=== PATIENT | male | born 1940 | race Caucasian/White ===

== ENCOUNTER → 2017-11-05 11:30 | Outpatient (CLI) | payer MEDICARE, OTHER, SELFPAY ==
--- NOTE | 2017-11-05 16:29 | STRESSREP ---
Stress Test Report Treadmill EKG report: Resting EKG: Atrial fibrillation with controlled ventricular response, poor R-wave progression across precordium, cannot exclude old anterior wall myocardial infarction, low voltage in the precordial and limb leads. Treadmill EKG: Patient exercised according to a Jose protocol for 3 minutes and 41 seconds achieving a maximum workload of 5.40 METS. Resting heart rate was initially 72 beats a minute and cate to maximum 122 beats a minute which represents 84% of the maximum age-predicted heart rate. Resting blood pressure was 170/82 and cate to maximum 240/70. Test was terminated due to the attainment of target heart rate and dyspnea. During exercise the patient's heart rate increased as expected. Patient had rare PVCs during exercise. Patient had no dynamic EKG changes to suggest ischemia. Rare ventricular couplet during recovery. No anginal symptoms noted. Conclusions: Normal adequate treadmill EKG. Negative for ischemia by EKG criteria. No anginal symptoms noted. Test terminated due to dyspnea. Baseline hypertension and hypertensive blood pressure response to exercise. Poor exercise capacity for age. Recommend clinical correlation or alternative mode of testing if coronary ischemia is suspected. Patient tolerated procedure well. No complications.
--- NOTE | 2017-11-05 16:33 | STRESSREP_ITS ---
Stress Test Report Treadmill EKG report: Resting EKG: Atrial fibrillation with controlled ventricular response, poor R- wave progression across precordium, cannot exclude old anterior wall myocardial infarction, low voltage in the precordial and limb leads. Treadmill EKG: Patient exercised according to a Jose protocol for 3 minutes and 41 seconds achieving a maximum workload of 5.40 METS. Resting heart rate was initially 72 beats a minute and cate to maximum 122 beats a minute which represents 84% of the maximum age-predicted heart rate. Resting blood pressure was 170/82 and cate to maximum 240/70. Test was terminated due to the attainment of target heart rate and dyspnea. During exercise the patient's heart rate increased as expected. Patient had rare PVCs during exercise. Patient had no dynamic EKG changes to suggest ischemia. Rare ventricular couplet during recovery. No anginal symptoms noted. Conclusions: Normal adequate treadmill EKG. Negative for ischemia by EKG criteria. No anginal symptoms noted. Test terminated due to dyspnea. Baseline hypertension and hypertensive blood pressure response to exercise. Poor exercise capacity for age. Recommend clinical correlation or alternative mode of testing if coronary ischemia is suspected. Patient tolerated procedure well. No complications.
== END ==
PROVIDERS: Family Provider Family Medicine; PCP Family Medicine; Visit Provider Internal Medicine Cardiovascular Disease
DX: R06.02 Shortness of breath (principal); R60.9 Edema, unspecified; E55.9 Vitamin D deficiency, unspecified
CPT/HCPCS: 93017

== ENCOUNTER 2022-03-21 14:21 | Emergency (ER) | payer MEDICARE, OTHER, SELFPAY ==
[2022-03-21 14:22] VITALS: BP 154/59; PULSE 42; RESP 16; TEMP 36.2; O2SAT 99; BMI 34.4
--- NOTE | 2022-03-21 14:57 | EKG12_ITS ---
Test Reason : Blood Pressure : / mmHG Vent. Rate : 043 BPM Atrial Rate : 000 BPM P-R Int : 000 ms QRS Dur : 104 ms QT Int : 430 ms P-R-T Axes : 000 -64 046 degrees QTc Int : 363 ms Junctional bradycardia Left axis deviation Inferior VT, age undetermined Ruiz-lateral VT, age undetermined Abnormal ECG Confirmed by SO JEFFERSON, SARY ([id number]), editor sound SILVIA ZHANG ([id number]) on 03/23/2022 9:19:43 AM Referred By: Rosa M Confirmed By:SARY RIZZO MD
--- NOTE | 2022-03-21 15:03 | EDS_ITS ---
HPI History of Present Illness Chief Complaint: Weakness Detail of Chief Complaint: I do not feel well Informant: patient Onset/Context/Timing Onset: Days Context: Gradual Onset Timing: Continuous Quality: Generalized unwellness Location: Not applicable Current Severity: Mild Maximum Severity: Mild Worsened by: Nothing Relieved by: Nothing Associated Symptoms Associated Symptoms: None Narrative Narrative: Patient is an elderly male who lives with family member who presents because he does not feel well. He denies fever, chills night sweats. He denies blurred vision, change in vision, double vision or loss of vision. He denies trouble with speech or swallowing. He is hard of hearing. He denies ringing in his ears. He does not endorse increased hearing loss. He does report congestion, which she states is not abnormal. He denies sore throat. He denies chest pain or anginal equivalent chest discomfort. He denies orthopnea, PND or dyspnea. He may have slight shortness of breath with activity. He denies nausea, vomiting or diarrhea. He denies black or maroon-colored stool. He denies urologic symptoms. He does have history of prostate cancer. He is on an anticoagulant. He does not know why he is on an anticoagulant. He denies leg pain, swelling or discoloration. He denies history of VTE. When patient was informed that he does have swelling he made the comment my socks have been tight recently . Prior similar symptoms: No Recent Illness/Hospitalization: No [facility] Medical History Bradycardia Chronic atrial fibrillation Chronic kidney disease Diabetes HTN (hypertension) Hyperlipidemia Lumbar spondylosis Home Medications atorvastatin 20 mg tablet 20 mg PO QHS cholesterol 03/21/22 [History Last Taken 03/20/22] chlorthalidone 25 mg tablet 1 tab PO DAILY 03/21/22 [History Last Taken 03/21/22] diltiazem HCl 240 mg capsule,24 hr,extended release 1 cap PO DAILY 03/21/22 [History Last Taken 03/21/22] gabapentin 300 mg capsule 1 cap PO BID 03/21/22 [History Last Taken 03/21/22] ketorolac 0.4 % eye drops 1 drp RIGHT EYE BID 03/21/22 [History Last Taken 03/21/22] latanoprost 0.005 % eye drops 1 drp EACH EYE QHS 03/21/22 [History Last Taken 03/20/22] lisinopril 40 mg tablet 40 tab PO DAILY 03/21/22 [History Last Taken 03/21/22] oxycodone-acetaminophen 5 mg-325 mg tablet 1 tab PO Q6H 03/21/22 [History Last Taken 4 Days Ago ~03/17/22] potassium chloride 20 mEq tablet,extended release(part/cryst) 20 meq PO DAILY potassium 03/21/22 [History Last Taken 03/21/22] warfarin 4 mg tablet 4 mg PO TUTH blood thinner 03/21/22 [History Last Taken 03/19/22] warfarin 5 mg tablet 5 mg PO SUMOWEFRSA blood thinner 03/21/22 [History Last Taken 03/20/22] Allergy/AdvReac Type Severity Reaction Status Date / Time No Known Allergies Allergy Verified 03/21/22 14:24 Social History (Updated 03/21/22 @ 15:[address] Radu Salcido MD) household members: family Smoking Status: Never smoker substance use type: does not use ROS ROS ED Constitutional Constitutional ED: Denies chills, fever(s), subjective, sweats or weight loss Eyes Eyes: Denies blurry vision, change in vision or diplopia ENT ENT ED: Reports other Details: Hard of hearing ; Denies ear pain, rhinorrhea or sore throat Cardiovascular Cardiovascular: Denies chest pain, orthopnea, palpitations, paroxysmal nocturnal dyspnea or racing heartbeat Respiratory/Chest Respiratory/Chest: Denies cough, dyspnea, dyspnea on exertion, orthopnea, paroxysmal nocturnal dyspnea or sputum Gastrointestinal Gastrointestinal: Denies abdominal pain, constipation, diarrhea, melena, nausea or vomiting Genitourinary Genitourinary ED: Denies dysuria, hematuria or urinary frequency Musculoskeletal Musculoskeletal: Denies arthralgias, back pain, myalgias or neck pain Integumentary Denies Abrasions or rash Neurologic Neurologic: Reports weakness; Denies headache(s) or paresthesias Endocrine Endocrinology: Denies cold intolerance or heat intolerance Hematologic/Lymphatic Hematologic/Lymphatic: Denies anemia, easy bleeding, easy bruising or lymphadenopathy EXAM Physical Exam Const Vital Signs: 03/21/22 14:22 03/21/22 15:06 03/21/22 16:22 Temperature 97.2 F L Temperature Source Temporal Pulse Rate 42 L 32 L Respiratory Rate 16 16 Respiratory Effort Normal Respiratory Pattern Normal Blood Pressure 154/59 H 155/58 H Blood Pressure Mean 90 90 Pulse Ox 99 99 Oxygen Delivery Method Room Air Room Air Positive well nourished, well developed and obese General Appearance ED: well developed and NAD; Negative for cyanotic, diaphoretic or pallor Nutritional Appearance: obese HEENT Reports TM's clear and moist mucous membranes HEENT Narrative: Nares patent. Posterior pharynx out erythema or exudate. Uvula midline. Negative for trauma or tenderness Tympanic Membrane ED: Yes TM's clear Eyes PERRL and EOMs intact bilaterally Eyes Narrative: There is no nystagmus. There is no APD. Cup-to-disc ratio is normal. Conjunctive is pink. Sclera is anicteric. Neck no lymphadenopathy and supple Resp normal respiratory effort and clear to auscultation bilaterally Cardio no murmurs Rate: bradycardia Rhythm: abnormal rhythm irregularly irregular GI normal to inspection, nondistended, normoactive bowel sounds, non-tender and non-distended; Negative for hepatosplenomegaly Palpation: soft Back/Spine no CVA tenderness Cervical Spine: Negative for cervical spine tenderness Thoracic Spine / Upper Back: Negative for thoracic spinal tenderness Lumbar Spine / Lower Back: Negative for lumbar spinal tenderness Extremity Negative for normal to inspection Extremity Narrative: There is pitting edema to 2 3 mm. DP pulses palpable bilateral General Extremety ED: Yes edema; Negative for tenderness General Extremity: edema Neuro oriented x3, CN's II-XII intact bilaterally and no sensory deficits noted Sensorium / Orientation: alert Motor Exam: strength 5/5 throughout Psych mental status grossly normal Skin no rashes or lesions noted, no wounds and skin turgor normal General Skin Exam: Negative for jaundice or pallor MDM MDM MDM Narrative Medical decision making narrative: Patient with generalized symptoms. Will obtain UA to rule out urinary tract infection. Will obtain PT/INR since patient is on Coumadin. After review of prior records patient is on Coumadin due to chronic A. fib. Electrolyte panel was obtained to assess renal function, electrolytes and specifically potassium and calcium. EKG was obtained and reveals atrial fibrillation with a ventricular rate of 43. I was informed by nurse that patient had a heart rate of 27. Patient was noted to have a heart rate of 38 on the monitor. Suspect this is the cause of his not feeling well. He also has several urinary tract infection with pyuria and 1+ bacteria. Macro is positive for occult blood and leukoesterase. Macro was negative for nitrites. Plan is to treat with Rocephin. Suspect patient's significant/profound bradycardia is due to his Cardizem extended release 240 mg tablets. Urine is suggestive of infection with pyuria, bacteria and macro this positive for blood and leukoesterase. Culture was sent. He was given a dose of Rocephin. When patient was informed of his results his heart rate was 30. Suspect this is contributing to him not feeling well. Case was discussed with the hospitalist. I was informed that she would contact the relay shop tester to determine if it will go on the hospitalist service versus cardiology service. She was informed that Dr. Eller who is on-call for ER is aware of the patient. Dr. Wynn did see patient. Patient informed that he had single episodes. He is concerned patient has sick sinus syndrome. Recommends transfer to tertiary facility. Patient prefers to stay within the [facility] since he is seen by a [facility] physician. We will attempt [facility], [facility] etc. Lab Data Attestation: I reviewed the patient's lab results. Labs: Laboratory Results - last 24 hr 03/21/22 03/21/22 03/21/22 15:02 15:02 15:02 WBC 10.9 RBC 4.42 L Hgb 13.2 Hct 40.4 MCV 91.4 MCH 29.9 MCHC 32.7 RDW Std Deviation 46.4 H RDW Coeff of Raysa 13.6 Plt Count 256 MPV 9.6 Immature Gran % (Auto) 0.600 Neut % (Auto) 83.4 H Lymph % (Auto) 7.3 L [place] % (Auto) 6.3 Eos % (Auto) 1.8 Baso % (Auto) 0.6 Absolute Neuts (auto) 9.1 H Absolute Lymphs (auto) 0.79 L Nucleated RBC % 0 PT 28.5 H INR 2.7 APTT 39.4 H Sodium 135 L Potassium 3.9 Chloride 103 Carbon Dioxide 26.0 Anion Gap 6 BUN 23 H Creatinine 1.30 Estim Creat Clear Calc 41.67 Est GFR (MDRD) Af Amer 68 Est GFR (MDRD) Non-Af 56 L BUN/Creatinine Ratio 17.7 Glucose 116 H Calcium 9.4 Total Bilirubin 0.50 AST 17 ALT 26 Alkaline Phosphatase 90 Total Protein 7.0 Albumin 3.7 Globulin 3.3 Albumin/Globulin Ratio 1.1 Urine Color Urine Clarity Urine pH Ur Specific [place] Urine Protein Urine Glucose (UA) Urine Ketones Urine Occult Blood Urine Nitrite Urine Bilirubin Urine Urobilinogen Ur Leukocyte Esterase Urine RBC Urine WBC Ur Squamous Epith Cells Urine Bacteria Urine Mucus 03/21/22 15:44 WBC RBC Hgb Hct MCV MCH MCHC RDW Std Deviation RDW Coeff of Raysa Plt Count MPV Immature Gran % (Auto) Neut % (Auto) Lymph % (Auto) Carroll % (Auto) Eos % (Auto) Baso % (Auto) Absolute Neuts (auto) Absolute Lymphs (auto) Nucleated RBC % PT INR APTT Sodium Potassium Chloride Carbon Dioxide Anion Gap BUN Creatinine Estim Creat Clear Calc Est GFR (MDRD) Af Amer Est GFR (MDRD) Non-Af BUN/Creatinine Ratio Glucose Calcium Total Bilirubin AST ALT Alkaline Phosphatase Total Protein Albumin Globulin Albumin/Globulin Ratio Urine Color Yellow Urine Clarity Clear Urine pH 6.5 Ur Specific [place] 1.015 Urine Protein 30 H Urine Glucose (UA) Normal Urine Ketones Negative Urine Occult Blood 10 H Urine Nitrite Negative Urine Bilirubin Negative Urine Urobilinogen 1 H Ur Leukocyte Esterase 100 H Urine RBC 0-5 SEEN Urine WBC 10-25 SEEN Ur Squamous Epith Cells 0-5 SEEN Urine Bacteria 1+ Urine Mucus 0 SEEN EKG Initial EKG: Attestation: I personally reviewed and interpreted this EKG as follows: Interpretation: Atrial Fibrillation (Ventricular is 43. QS duration is 104 ms. QT duration is 430 ms. [place] to the left. There is decreased anterior forces noted.) Critical Care Time Critical Care Time: Yes Critical care time (excluding procedures): 30-74 minutes (31), Including time spent: (History, physical, documentation, interpretation of laboratory results), Discussing w/Patient &/or Family/Storeperson (Discussion with patient for admission. After I was informed that Dr. Kenton Daniel is not available for pacemaker regarding transfer. Patient prefers to be admitted to a [facility] facility.), Discussing w/Consultants (Hospitalist and relay shop tester who saw patient in the emergency department) and Arranging Admission or Transfer (Transferred to outside facility for pacemaker) Discharge Plan Triage Chief Complaint: Weakness ED Provider: Radu Salcido Dx/Rx/DC Orders Clinical Impression: Bradycardia with less than 30 beats per minute, Urinary tract infection Prescriptions: No Action latanoprost 0.005 % drops 1 drp EACH EYE QHS Label Comments: INSTILL 1 DROP IN BOTH EYES DAILY DIRECTED atorvastatin 20 mg tablet 20 mg PO QHS Label Comments: TAKE 1 TABLET BY MOUTH ONCE DAILY AT BEDTIME diltiazem HCl 240 mg capsule,extended release 24 hr 1 cap PO DAILY Label Comments: 1 capsule by mouth as directed chlorthalidone 25 mg tablet 1 tab PO DAILY Label Comments: 1 tablet by mouth as directed oxycodone-acetaminophen 5-325 mg tablet 1 tab PO Q6H Label Comments: TAKE 1 TABLET BY MOUTH EVERY 6 HOURS NEEDED FOR PAIN FOR 7 DAYS potassium chloride 20 mEq tablet,ER particles/crystals 20 meq PO DAILY Label Comments: Take 1 tablet by mouth twice daily. gabapentin 300 mg capsule 1 cap PO BID Label Comments: TAKE 1 CAPSULE BY MOUTH THREE TIMES DAILY lisinopril 40 mg tablet 40 tab PO DAILY Label Comments: TAKE 1 TABLET BY MOUTH EVERY DAY warfarin 4 mg tablet 4 mg PO TUTH Label Comments: TAKE 1 TABLET BY MOUTH EVERY DAY warfarin 5 mg tablet 5 mg PO SUMOWEFRSA Label Comments: TAKE 1 TABLET BY MOUTH ONCE DAILY ketorolac 0.4 % drops 1 drp RIGHT EYE BID Label Comments: Instill 1 drop into right eye twice a day Primary Care Provider: Liane Davies Referrals: Liane Davies DO [Primary Care Provider] - Disposition Disposition: [facility]
[2022-03-21 15:15] LABS: Absolute Lymphocyte Count 0.79 X10^3/uL (0.83-4.51); Absolute Neutrophil Count 9.1 X10^3/uL (2.0-7.7); Basophil# 0.06 X10^3/uL; Basophil% 0.6 % (0-1); Eosinophils% 1.8 % (0-5); Hematocrit 40.4 % (40-54); Hemoglobin 13.2 g/dL (13.0-16.5); Lymphocyte # 0.79 X10^3/ul (0.83-4.51); Lymphocyte % 7.3 % (19-41); Mean Corp Hgb Conc 32.7 g/dL (32-36); Mean Corpuscular Hgb 29.9 pg (27.0-32.0); Mean Corpuscular Volume 91.4 fL (80-94); Mean Platelet Vol. 9.6 fl (6.2-12.0); Monocyte# 0.68 X10^3/uL; Monocyte% 6.3 % (0-10); NRBC Flagged by Analyzer 0 % (0-5); Neutrophil # 9.06 X10^3/uL (2.7-7.7); Neutrophil % 83.4 % (47-70); Platelet Count 256 K/mm3 (150-450); RBC Distribution Width CV 13.6 % (11.6-14.6); RBC Distribution Width SD 46.4 fl (35.1-43.9); Red Blood Count 4.42 M/mm3 (4.6-6.2); White Blood Count 10.9 K/mm3 (4.4-11.0)
[2022-03-21 15:31] LABS: ALB/GLOB Ratio 1.1 RATIO (0.9-2.4); AST(SGOT) 17 U/L (15-37); Alanine Aminotransfer ALT/SGPT 26 U/L (16-61); Albumin, Serum 3.7 g/dL (3.2-5.0); Alkaline Phosphatase 90 U/L (45-117); Anion Gap 6 (5-15); BUN 23 mg/dL (7-18); BUN/Creat Ratio 17.7 RATIO (10-20); Calcium,Total 9.4 mg/dL (8.5-10.1); Chloride 103 mmol/L (98-107); EST Glomerular Filtration Rate 56 mL/min (>60); Est Glom Filt Rate - Afr Amer 68 mL/min (>60); Estimated Creatinine Clearance 41.67 ml/min; Globulin 3.3 g/dL (2.2-4.2); Glucose 116 mg/dL (74-106); Potassium 3.9 mmol/L (3.5-5.1); Sodium Level 135 mmol/L (136-145)
[2022-03-21 15:54] LABS: Mucous, Urine 0 SEEN /hpf (<or=2+)
[2022-03-21 16:08] LABS: Color, Urine Yellow (Yellow); Glucose, Dipstick Normal (Normal); Ketone-Dipstick Negative (Negative); Leukocyte Esterase-Dipstick 100 /ul (Negative); Nitrite-Dipstick Negative (Negative); Occult Blood-Urine 10 /ul (Negative); Protein-Dipstick 30 mg/dl (Negative); Specific Gravity, Urine 1.015 (1.002-1.030); Urine Bilirubin Dipstick Negative (Negative); Urine Clarity Clear (Clear); Urine Urobilinogen 1 mg/dl (Normal); Urine pH 6.5 (5.0 - 8.0)
[2022-03-21 16:21] LABS: Red Blood Cells-Urine 0-5 SEEN /hpf (0-5); Squamous Epithelial Cells - UA 0-5 SEEN /hpf (0-5); White Blood Cells 10-25 SEEN /hpf (0-5)
[2022-03-21 16:22] VITALS: BP 155/58; PULSE 32; RESP 16; O2SAT 99
[2022-03-21 16:22] LABS: Bacteria 1+ /hpf (None Seen)
[2022-03-21] MEDS: Ceftriaxone 1 GM/50 ML BAG IV (17:02)
--- NOTE | 2022-03-21 17:14 | PCM.HP.STD ---
HPI - General HPI Narrative MARINE FINCH, is a 81 M who presents [facility] Medical History Bradycardia Chronic atrial fibrillation Chronic kidney disease Diabetes HTN (hypertension) Hyperlipidemia Lumbar spondylosis Home Medications atorvastatin 20 mg tablet 20 mg PO QHS cholesterol 03/21/22 [History Last Taken 03/20/22] chlorthalidone 25 mg tablet 1 tab PO DAILY 03/21/22 [History Last Taken 03/21/22] diltiazem HCl 240 mg capsule,24 hr,extended release 1 cap PO DAILY 03/21/22 [History Last Taken 03/21/22] gabapentin 300 mg capsule 1 cap PO BID 03/21/22 [History Last Taken 03/21/22] ketorolac 0.4 % eye drops 1 drp RIGHT EYE BID 03/21/22 [History Last Taken 03/21/22] latanoprost 0.005 % eye drops 1 drp EACH EYE QHS 03/21/22 [History Last Taken 03/20/22] lisinopril 40 mg tablet 40 tab PO DAILY 03/21/22 [History Last Taken 03/21/22] oxycodone-acetaminophen 5 mg-325 mg tablet 1 tab PO Q6H 03/21/22 [History Last Taken 4 Days Ago ~03/17/22] potassium chloride 20 mEq tablet,extended release(part/cryst) 20 meq PO DAILY potassium 03/21/22 [History Last Taken 03/21/22] warfarin 4 mg tablet 4 mg PO TUTH blood thinner 03/21/22 [History Last Taken 03/19/22] warfarin 5 mg tablet 5 mg PO SUMOWEFRSA blood thinner 03/21/22 [History Last Taken 03/20/22] Allergy/AdvReac Type Severity Reaction Status Date / Time No Known Allergies Allergy Verified 03/21/22 14:24 Social History (Updated 03/21/22 @ 15:[address] Radu Salcido MD) household members: family Smoking Status: Never smoker substance use type: does not use Vital Signs Vital Signs Vital Signs: 03/21/22 14:22 03/21/22 15:06 03/21/22 16:22 Temperature 97.2 F L Temperature Source Temporal Pulse Rate 42 L 32 L Respiratory Rate 16 16 Respiratory Effort Normal Respiratory Pattern Normal Blood Pressure 154/59 H 155/58 H Blood Pressure Mean 90 90 Pulse Ox 99 99 Oxygen Delivery Method Room Air Room Air Weight Weight: 99.79 kg Body Mass Index (BMI) 34.4 Results Lab / Micro Data Result Diagrams: 03/21/22 15:02 03/21/22 15:02 Labs: Laboratory Results - last 24 hr 03/21/22 15:02: WBC 10.9, RBC 4.42 L, Hgb 13.2, Hct 40.4, MCV 91.4, MCH 29.9, MCHC 32.7, RDW Std Deviation 46.4 H, RDW Coeff of Raysa 13.6, Plt Count 256, MPV 9.6, Immature Gran % (Auto) 0.600, Neut % (Auto) 83.4 H, Lymph % (Auto) 7.3 L, [place] % (Auto) 6.3, Eos % (Auto) 1.8, Baso % (Auto) 0.6, Absolute Neuts (auto) 9.1 H, Absolute Lymphs (auto) 0.79 L, Nucleated RBC % 0 03/21/22 15:02: Sodium 135 L, Potassium 3.9, Chloride 103, Carbon Dioxide 26.0, Anion Gap 6, BUN 23 H, Creatinine 1.30, Estim Creat Clear Calc 41.67, Est GFR (MDRD) Af Amer 68, Est GFR (MDRD) Non-Af 56 L, BUN/Creatinine Ratio 17.7, Glucose 116 H, Calcium 9.4, Total Bilirubin 0.50, AST 17, ALT 26, Alkaline Phosphatase 90, Total Protein 7.0, Albumin 3.7, Globulin 3.3, Albumin/Globulin Ratio 1.1 03/21/22 15:44: Urine Color Yellow, Urine Clarity Clear, Urine pH 6.5, Ur Specific [place] 1.015, Urine Protein 30 H, Urine Glucose (UA) Normal, Urine Ketones Negative, Urine Occult Blood 10 H, Urine Nitrite Negative, Urine Bilirubin Negative, Urine Urobilinogen 1 H, Ur Leukocyte Esterase 100 H, Urine RBC 0-5 SEEN, Urine WBC 10-25 SEEN, Ur Squamous Epith Cells 0-5 SEEN, Urine Bacteria 1+, Urine Mucus 0 SEEN
[2022-03-21 17:15] LABS: International Normalized Ratio 2.7; Prothrombin Time (Protime)PT. 28.5 SECONDS (11.7-14.9)
[2022-03-21 17:16] LABS: Partial Thromboplast Time 39.4 Seconds (24.1-36.2)
[2022-03-21 17:41] VITALS: BP 185/95; PULSE 34; RESP 16; TEMP 37.2; O2SAT 99
--- NOTE | 2022-03-21 18:15 | EKG12_ITS ---
Test Reason : Blood Pressure : / mmHG Vent. Rate : 053 BPM Atrial Rate : 000 BPM P-R Int : 000 ms QRS Dur : 102 ms QT Int : 452 ms P-R-T Axes : 000 -63 068 degrees QTc Int : 424 ms Atrial fibrillation with slow ventricular response Left axis deviation Inferior infarct , age undetermined Anterolateral infarct , age undetermined Abnormal ECG Confirmed by SO JEFFERSON, SARY ([id number]), publication editor SILVIA ZHANG ([id number]) on 03/23/2022 9:20:02 AM Referred By: Confirmed By:SARY RIZZO MD
== END 2022-03-21 18:59 | disposition short-term general hospital (02) ==
PROVIDERS: Emergency Provider Emergency Medicine; PCP Family Medicine; Visit Provider Emergency Medicine
DX: R00.1 Bradycardia, unspecified (principal); I48.20 Chronic atrial fibrillation, unspecified; N39.0 Urinary tract infection, site not specified; I12.9 Hypertensive chronic kidney disease with stage 1 through stage 4 chronic kidney disease, or unspecified chronic kidney disease; E78.5 Hyperlipidemia, unspecified; N18.9 Chronic kidney disease, unspecified; E66.9 Obesity, unspecified; Z79.899 Other long term (current) drug therapy; Z79.01 Long term (current) use of anticoagulants
CPT/HCPCS: 80053; 81001; 85025; 85610; 85730; 87077; 87086; 87088; 87186; 87811; 93005; 96365; 96366; 99285; A4216

== ENCOUNTER 2024-06-10 14:29 | Emergency (ER) | payer MEDICARE, OTHER, SELFPAY ==
[2024-06-10 14:29] VITALS: BP 162/82; PULSE 74; RESP 14; TEMP 36.1; O2SAT 98; BMI 32.3
--- NOTE | 2024-06-10 14:40 | EKG12_ITS ---
Test Reason : CP Blood Pressure : / mmHG Vent. Rate : 088 BPM Atrial Rate : 081 BPM P-R Int : 000 ms QRS Dur : 132 ms QT Int : 376 ms P-R-T Axes : 000 079 237 degrees QTc Int : 454 ms Ventricular-paced rhythm with frequent Premature ventricular complexes Abnormal ECG Confirmed by BLAKE JEFFERSON, ABHI ([id number]), fashion editor CHANDU SANDOVAL ([id number]) on 06/11/2024 2:55:02 PM Referred By: Confirmed By:ABHI LOZANO MD
--- NOTE | 2024-06-10 14:41 | EX.ED.DYSGE1 ---
HPI <SUNNY Soler - Last Filed: 06/10/24 18:21> History of Present Illness Chief Complaint: Chest Pain Narrative Narrative: Patient is an 83-year-old male with history of CAD, history of CT, hypertension hyperlipidemia patient does have a pacemaker, patient is on Coumadin. Presenting to the emergency department with 3 to 4 days of intermittent chest pain, this occurs when he is just sitting there. Per the son, the patient's been under a great deal of stress. The patient just found out a couple days ago that his daughter is going to skilled nursing for 2 years. Per the son, the patient is taking it hard. Denies any nausea or vomiting. Patient is here for evaluation. He also complains of feeling generalized weakness as well. PFS <SUNNY Soler - Last Filed: 06/10/24 18:21> [facility] Medical History Bradycardia Chronic atrial fibrillation Chronic kidney disease Diabetes HTN (hypertension) Hyperlipidemia Lumbar spondylosis Home Medications ?Medication ?Instructions ?Recorded ?Last Taken ?Type atorvastatin 20 mg tablet 20 mg PO QHS cholesterol 03/21/22 03/20/22 History chlorthalidone 25 mg tablet 1 tab PO DAILY 03/21/22 03/21/22 History diltiazem HCl 240 mg capsule,24 1 cap PO DAILY 03/21/22 03/21/22 History hr,extended release gabapentin 300 mg capsule 1 cap PO BID 03/21/22 03/21/22 History ketorolac 0.4 % eye drops 1 drp RIGHT EYE BID 03/21/22 03/21/22 History latanoprost 0.005 % eye drops 1 drp EACH EYE QHS 03/21/22 03/20/22 History lisinopril 40 mg tablet 40 tab PO DAILY 03/21/22 03/21/22 History oxycodone-acetaminophen 5 mg-325 1 tab PO Q6H 03/21/22 4 Days Ago History mg tablet ~03/17/22 potassium chloride 20 mEq 20 meq PO DAILY potassium 03/21/22 03/21/22 History tablet,extended release(part/cryst) warfarin 4 mg tablet 4 mg PO TUTH blood thinner 03/21/22 03/19/22 History warfarin 5 mg tablet 5 mg PO SUMOWEFRSA blood thinner 03/21/22 03/20/22 History Allergy/AdvReac Type Severity Reaction Status Date / Time No Known Allergies Allergy Verified 06/10/24 14:45 Social History (Updated 03/21/22 @ 15:[address] Radu Salcido MD) household members: family Smoking Status: Never smoker substance use type: does not use ROS <SUNNY Soler - Last Filed: 06/10/24 18:21> ROS ED ROS Narrative Constitutional: Negative for fever, chills, weight loss. Positive for weakness Eyes: Negative for vision loss, vision change, double vision ENT: Negative for any sore throat, ear pain, congestion Cardiovascular: Negative for any tightness, palpitations. Positive for chest pain Respiratory: Negative for any cough, sputum production, hemoptysis, dyspnea, dyspnea on exertion, orthopnea Gastrointestinal: Negative for any abdominal pain, nausea, vomiting, diarrhea, constipation, blood in stool, blood in vomit : Negative for any urinary frequency, dysuria, retention, blood in urine Muscle skeletal: Negative for any neck pain, back pain Neurological: Negative for any headache, syncope, dizziness Skin: Negative for any rashes, itching, abrasions, lacerations Psychiatric: Negative for any depression, anxiety, suicidal ideation, homicidal ideation. Positive for stress Hematologic: Negative for any excessive bruising, easy bleeding EXAM <SUNNY Soler - Last Filed: 06/10/24 18:21> Physical Exam Narrative Exam Narrative: Vital signs reviewed. Patient at this time is not complaining of any chest pain. HEET: Head normocephalic atraumatic, TMs clear bilaterally. Posterior pharynx is clear, moist mucous membranes. Nares clear bilaterally. Pupils equal round reactive to light. Neck: Supple with no lymphadenopathy or tenderness. No signs of meningismus. Cardiac: Regular rate and rhythm no murmurs gallops or rubs, equal peripheral pulses bilaterally. Respiratory: Lungs clear to auscultation bilaterally. No chest tenderness. Abdomen: Soft, nontender, nondistended. No abdominal bruit or pulsatile masses. No hepatosplenomegaly Extremities: No peripheral edema, no signs of gross trauma or deformity. Active full range of motion of all extremities. Neuro: Cranial nerves II through XII intact, no focal neurological deficits. Skin: Clean dry and intact with no rash, purpura, petechiae, vesicles or pustules. Backs/flank: No CVA tenderness, no midline spinal tenderness, no deformity. Psych: Normal mood and affect. No SI, HI or acute psychosis. Const Vital Signs: 06/10/24 14:29 06/10/24 16:29 06/10/24 18:00 Temperature 97 F L Temperature Source Temporal Pulse Rate 74 100 87 Respiratory Rate 14 Blood Pressure 162/82 H 148/65 H 156/115 H Blood Pressure Mean 108 92 128 Pulse Ox 98 Oxygen Delivery Method Room Air Positive well nourished and well developed General Appearance ED: well developed <Dr. Hunter Todd DO - Last Filed: 06/16/24 15:45> Physical Exam Const Vital Signs: 06/10/24 14:29 06/10/24 16:29 06/10/24 18:00 Temperature 97 F L Temperature Source Temporal Pulse Rate 74 100 87 Respiratory Rate 14 Blood Pressure 162/82 H 148/65 H 156/115 H Blood Pressure Mean 108 92 128 Pulse Ox 98 Oxygen Delivery Method Room Air MDM <SUNNY Soler - Last Filed: 06/10/24 18:21> MDM Lab Data Labs: Laboratory Results - last 24 hr 06/10/24 06/10/24 06/10/24 15:20 15:39 17:31 WBC 8.4 RBC 4.50 L Hgb 13.0 Hct 40.9 MCV 90.9 MCH 28.9 MCHC 31.8 L RDW Std Deviation 47.9 H RDW Coeff of [place]ays[place] 14.4 Plt Count 252 MPV 8.9 Immature Gran % (Auto) 0.700 Neut % (Auto) 79.4 H Lymph % (Auto) 10.6 L [place] % (Auto) 6.8 Eos % (Auto) 1.7 Baso % (Auto) 0.8 Absolute Neuts (auto) 6.7 Absolute Lymphs (auto) 0.89 Nucleated RBC % 0 PT 22.5 H INR 2.0 Sodium 135 L Potassium 4.2 Chloride 102 Carbon Dioxide 28.0 Anion Gap 4 L BUN 23 H Creatinine 1.43 H Estim Creat Clear Calc 42.71 Est GFR (MDRD) Af Amer 61 Est GFR (MDRD) Non-Af 50 L BUN/Creatinine Ratio 16.1 Glucose 153 H Calcium 9.3 Troponin I High Sens 12 12 Urine Color Yellow Urine Clarity Clear Urine pH 7.0 Ur Specific [place] 1.010 Urine Protein Negative Urine Glucose (UA) Normal Urine Ketones Negative Urine Occult Blood Negative Urine Nitrite Negative Urine Bilirubin Negative Urine Urobilinogen 1 H Ur Leukocyte Esterase 25 H Urine RBC 0 SEEN Urine WBC 0-5 SEEN Ur Squamous Epith Cells 0 SEEN Urine Bacteria 0 SEEN Urine Mucus 0 SEEN Radiography Diagnostic Testing: Clinical Impression(s) from Imaging Studies Chest X-Ray 06/10/24 15:25 IMPRESSION: Cardiomegaly with hyperinflation and no acute or active cardiopulmonary disease. Electronically Signed: Zhao Baron MD at 15:45 EDT , EKG Ventricle paced rhythm: Attestation: I personally reviewed and interpreted this EKG as follows: Comments: Ventricular paced rhythm with frequent premature ventricular complexes, rate of 88 bpm, QRS duration 132 ms, no acute ST elevation, no acute infarct noted. Treatment and Re-Evaluation :: Differential diagnosis includes however is not limited to: ACS, CT, stress, pneumonia, COVID-19, influenza, COVID-19, other viral illness electrolyte abnormality Patient appears generally well, vital signs are stable, patient is nontoxic-appearing. Patient at this time is not complaining of any chest pain. Patient's vital signs are stable. Patient received a cardiac workup including troponin, PT/INR secondary to the patient being on Coumadin. Patient will receive a COVID-19/influenza/RSV swab secondary to the patient feeling weak. Urinalysis as well. All radiologic examinations were read, reviewed by the emergency department attending. From these reads, a plan of care will be put in place. Patient CBC was unremarkable, PT shows a 22.5 with an INR 2.0, chemistries show sodium 135, creatinine is 1.43, patient's baseline 2 years ago was 1.3, this is not significant change. Patient's glucose 153, troponin was negative at 12. Repeat troponin will be drawn, once negative, patient will be discharged home. Urinalysis was negative for any infection. Chest x-ray showed cardiomegaly with no acute cardiopulmonary pathology. Patient's COVID-19 influenza was negative. Patient's repeat troponin was negative. At this time, patient still pain-free, patient stable for discharge. Attending note: I have personally performed a face to face assessment of the patient and have reviewed the [facility] note. I personally made/approved the management plan and take responsibility for the patient management. I performed a substantive portion of the visit including all aspects of the following. My argueta findings include: Today intermittent chest discomfort lasting seconds. Last time this morning. No recent cough. Paroxysmal A-fib with pacemaker on warfarin. Currently asymptomatic. He did recently find out his daughters to be put in care home with increasing stress. Denies any heart stents. He is followed by [facility] cardiology however he fired them a year ago. Exam alert nontoxic no acute distress. Heart is regular. Lungs are clear. EKG paced rhythm no acute findings. Cardiac workup initiated for rule out. He is symptom-free. Initial troponin is 12. INR therapeutic at 2.0. Lower concerns for PE. <Dr. Hunter Todd, DO - Last Filed: 06/16/24 15:45> [facility] Lab Data Attestation: I reviewed the patient's lab results. Labs: Laboratory Results - last 24 hr 06/10/24 06/10/24 06/10/24 15:20 15:39 17:31 WBC 8.4 RBC 4.50 L Hgb 13.0 Hct 40.9 MCV 90.9 MCH 28.9 MCHC 31.8 L RDW Std Deviation 47.9 H RDW Coeff of [place]ays[place] 14.4 Plt Count 252 MPV 8.9 Immature Gran % (Auto) 0.700 Neut % (Auto) 79.4 H Lymph % (Auto) 10.6 L [place] % (Auto) 6.8 Eos % (Auto) 1.7 Baso % (Auto) 0.8 Absolute Neuts (auto) 6.7 Absolute Lymphs (auto) 0.89 Nucleated RBC % 0 PT 22.5 H INR 2.0 Sodium 135 L Potassium 4.2 Chloride 102 Carbon Dioxide 28.0 Anion Gap 4 L BUN 23 H Creatinine 1.43 H Estim Creat Clear Calc 42.71 Est GFR (MDRD) Af Amer 61 Est GFR (MDRD) Non-Af 50 L BUN/Creatinine Ratio 16.1 Glucose 153 H Calcium 9.3 Troponin I High Sens 12 12 Urine Color Yellow Urine Clarity Clear Urine pH 7.0 Ur Specific [place] 1.010 Urine Protein Negative Urine Glucose (UA) Normal Urine Ketones Negative Urine Occult Blood Negative Urine Nitrite Negative Urine Bilirubin Negative Urine Urobilinogen 1 H Ur Leukocyte Esterase 25 H Urine RBC 0 SEEN Urine WBC 0-5 SEEN Ur Squamous Epith Cells 0 SEEN Urine Bacteria 0 SEEN Urine Mucus 0 SEEN Radiography Diagnostic Testing: Clinical Impression(s) from Imaging Studies Chest X-Ray 06/10/24 15:25 IMPRESSION: Cardiomegaly with hyperinflation and no acute or active cardiopulmonary disease. Electronically Signed: Zhao Baron MD at 15:45 EDT , Treatment and Re-Evaluation :: Differential diagnosis includes however is not limited to: ACS, CT, stress, pneumonia, COVID-19, influenza, COVID-19, other viral illness electrolyte abnormality Patient appears generally well, vital signs are stable, patient is nontoxic-appearing. Patient at this time is not complaining of any chest pain. Patient's vital signs are stable. Patient received a cardiac workup including troponin, PT/INR secondary to the patient being on Coumadin. Patient will receive a COVID-19/influenza/RSV swab secondary to the patient feeling weak. Urinalysis as well. All radiologic examinations were read, reviewed by the emergency department attending. From these reads, a plan of care will be put in place. Attending note: I have personally performed a face to face assessment of the patient and have reviewed the [facility] note. I personally made/approved the management plan and take responsibility for the patient management. I performed a substantive portion of the visit including all aspects of the following. My argueta findings include: Today intermittent chest discomfort lasting seconds. Last time this morning. No recent cough. Paroxysmal A-fib with pacemaker on warfarin. Currently asymptomatic. He did recently find out his daughters to be put in care home with increasing stress. Denies any heart stents. He is followed by [facility] cardiology however he fired them a year ago. Exam alert nontoxic no acute distress. Heart is regular. Lungs are clear. EKG paced rhythm no acute findings. Cardiac workup initiated for rule out. He is symptom-free. Initial troponin is 12. INR therapeutic at 2.0. Lower concerns for PE. Discharge Plan Triage Chief Complaint: Chest Pain ED Midlevel Provider: Chance Waldrop ED Provider: Hunter Todd Dx/Rx/DC Orders Clinical Impression: Chest pain Instructions: ED Chest Pain, Noncardiac Prescriptions: No Action latanoprost 0.005 % drops 1 drp EACH EYE QHS Patient Comments: INSTILL 1 DROP IN BOTH EYES DAILY DIRECTED atorvastatin 20 mg tablet 20 mg PO QHS Patient Comments: TAKE 1 TABLET BY MOUTH ONCE DAILY AT BEDTIME diltiazem HCl 240 mg capsule,extended release 24 hr 1 cap PO DAILY Patient Comments: 1 capsule by mouth as directed chlorthalidone 25 mg tablet 1 tab PO DAILY Patient Comments: 1 tablet by mouth as directed oxycodone-acetaminophen 5-325 mg tablet 1 tab PO Q6H Patient Comments: TAKE 1 TABLET BY MOUTH EVERY 6 HOURS NEEDED FOR PAIN FOR 7 DAYS potassium chloride 20 mEq tablet,ER particles/crystals 20 meq PO DAILY Patient Comments: Take 1 tablet by mouth twice daily. gabapentin 300 mg capsule 1 cap PO BID Patient Comments: TAKE 1 CAPSULE BY MOUTH THREE TIMES DAILY lisinopril 40 mg tablet 40 tab PO DAILY Patient Comments: TAKE 1 TABLET BY MOUTH EVERY DAY warfarin 4 mg tablet 4 mg PO TUTH Patient Comments: TAKE 1 TABLET BY MOUTH EVERY DAY warfarin 5 mg tablet 5 mg PO SUMOWEFRSA Patient Comments: TAKE 1 TABLET BY MOUTH ONCE DAILY ketorolac 0.4 % drops 1 drp RIGHT EYE BID Patient Comments: Instill 1 drop into right eye twice a day Primary Care Provider: Liane Davies Referrals: Liane Davies DO [Primary Care Provider] - Activity Restrictions/Additional Instructions: Please follow-up outpatient. You had a negative cardiac workup today Print Language: [place] Disposition Disposition: Home, Self Care Discharge Date/Time: 06/10/24 18:28
[2024-06-10 15:25] LABS: Absolute Lymphocyte Count 0.89 X10^3/uL (0.83-4.51); Absolute Neutrophil Count 6.7 X10^3/uL (2.0-7.7); Basophil# 0.07 X10^3/uL; Basophil% 0.8 % (0-1); Eosinophil# 0.14 X10^3/uL; Eosinophils% 1.7 % (0-5); Hematocrit 40.9 % (40-54); Lymphocyte # 0.89 X10^3/ul (0.83-4.51); Lymphocyte % 10.6 % (19-41); Mean Corp Hgb Conc 31.8 g/dL (32-36); Mean Corpuscular Hgb 28.9 pg (27.0-32.0); Mean Corpuscular Volume 90.9 fL (80-94); Mean Platelet Vol. 8.9 fl (6.2-12.0); Monocyte# 0.57 X10^3/uL; Monocyte% 6.8 % (0-10); NRBC Flagged by Analyzer 0 % (0-5); Neutrophil # 6.65 X10^3/uL (2.7-7.7); Neutrophil % 79.4 % (47-70); Platelet Count 252 K/mm3 (150-450); RBC Distribution Width CV 14.4 % (11.6-14.6); RBC Distribution Width SD 47.9 fl (35.1-43.9); White Blood Count 8.4 K/mm3 (4.4-11.0)
--- NOTE | 2024-06-10 15:25 | RAD_ITS ---
STUDY: X-RAY CHEST REASON FOR EXAM: Male, 83 years old. Cough. TECHNIQUE: Frontal and lateral views of the chest. COMPARISON: None. FINDINGS: Hyperinflation. Healed granulomatous calcifications. There is no demonstrated pleural abnormality. Stable cardiomegaly. Normal mediastinum and melvi. Normal visualized pulmonary arteries. Aortic tortuosity with calcification. Thoracic osteopenia with diffuse mild thoracic spondylosis. Normal visualized ribs, clavicles, and shoulders. No abnormality of the visualized soft tissue structures of the upper abdomen. RAD/Chest PA and Lateral IMPRESSION: Cardiomegaly with hyperinflation and no acute or active cardiopulmonary disease. Electronically Signed: Zhao Baron MD at 15:45 EDT ,
[2024-06-10 15:42] LABS: Prothrombin Time (Protime)PT. 22.5 SECONDS (11.7-14.9)
[2024-06-10 15:51] LABS: Bacteria 0 SEEN /hpf (None Seen); Mucous, Urine 0 SEEN /hpf (<or=2+); Red Blood Cells-Urine 0 SEEN /hpf (0-5); Squamous Epithelial Cells - UA 0 SEEN /hpf (0-5)
[2024-06-10 15:57] LABS: Anion Gap 4 (5-15); BUN 23 mg/dL (7-18); BUN/Creat Ratio 16.1 RATIO (10-20); Calcium,Total 9.3 mg/dL (8.5-10.1); Chloride 102 mmol/L (98-107); Creatinine, Serum 1.43 mg/dL (0.70-1.30); EST Glomerular Filtration Rate 50 mL/min (>60); Est Glom Filt Rate - Afr Amer 61 mL/min (>60); Estimated Creatinine Clearance 42.71 ml/min; Glucose 153 mg/dL (74-106); Potassium 4.2 mmol/L (3.5-5.1); Sodium Level 135 mmol/L (136-145); Troponin-I HS (w/2H Reflex) 12 pg/mL (3.0-78.0)
[2024-06-10 16:14] LABS: Color, Urine Yellow (Yellow); Glucose, Dipstick Normal (Normal); Ketone-Dipstick Negative (Negative); Leukocyte Esterase-Dipstick 25 /ul (Negative); Nitrite-Dipstick Negative (Negative); Occult Blood-Urine Negative /ul (Negative); Protein-Dipstick Negative (Negative); Urine Bilirubin Dipstick Negative (Negative); Urine Clarity Clear (Clear); Urine Urobilinogen 1 mg/dl (Normal)
[2024-06-10 16:21] LABS: White Blood Cells 0-5 SEEN /hpf (0-5)
[2024-06-10 16:29] VITALS: BP 148/65; PULSE 100
[2024-06-10 17:23] LABS: Reflex Troponin-HS? (from REC) Y
[2024-06-10 18:00] VITALS: BP 156/115; PULSE 87
[2024-06-10 18:04] LABS: Troponin-I HS 12 pg/mL (3.0-78.0)
[2024-06-10 18:28] VITALS: BP 148/94; PULSE 87; RESP 16; TEMP 36.9; O2SAT 100
== END 2024-06-10 18:28 | disposition home or self-care (01) ==
PROVIDERS: Nurse Practitioner; Emergency Provider Emergency Medicine; PCP Family Medicine; Visit Provider Emergency Medicine
DX: R07.9 Chest pain, unspecified (principal); E11.22 Type 2 diabetes mellitus with diabetic chronic kidney disease; N18.9 Chronic kidney disease, unspecified; I25.2 Old myocardial infarction; I25.10 Atherosclerotic heart disease of native coronary artery without angina pectoris; Z95.0 Presence of cardiac pacemaker; Z79.01 Long term (current) use of anticoagulants
CPT/HCPCS: 71046; 80048; 81001; 84484; 85025; 85610; 87631; 93005; 99283; A4216